=== PATIENT | male | born 1960 | race Caucasian/White ===

== ENCOUNTER 2016-08-25 15:56 | Emergency (ER) | payer MEDICAID ==
[~2016-08-25] VITALS: Ht 170.2 cm; Wt 65.3 kg
[2016-08-25 16:11] VITALS: BP 176/97
[2016-08-25] MEDS ORDERED: LIDOCAINE 1%, 20ML SQ ONE (16:30)
[2016-08-25] MEDS ORDERED: LIDOCAINE 1%, 20ML ONE (16:35)
== END 2016-08-25 17:13 | disposition home or self-care (01) ==
LOC: ED 17:06
DX: S61.411A Laceration without foreign body of right hand, initial encounter (principal); E11.9 Type 2 diabetes mellitus without complications; I10 Essential (primary) hypertension; B18.2 Chronic viral hepatitis C; W26.0XXA Contact with knife, initial encounter; Y93.89 Activity, other specified; Y92.098 Other place in other non-institutional residence as the place of occurrence of the external cause; Y99.8 Other external cause status
CPT/HCPCS: 12042